=== PATIENT | female | born 1995 | race Caucasian/White ===

== ENCOUNTER 2017-05-24 23:52 | Emergency (ER) | payer SELFPAY ==
[~2017-05-24] VITALS: Ht 154.9 cm; Wt 52.0 kg
[2017-05-25 02:47] VITALS: BP 122/74
[2017-05-25] MEDS ORDERED: LORAZEPAM 0.5MG TABLET PO ONE (03:15)
== END 2017-05-25 03:30 | disposition home or self-care (01) ==
LOC: ER 23:52
DX: R20.9 Unspecified disturbances of skin sensation (principal); R00.2 Palpitations
CPT/HCPCS: 81025; 99282; Z7610